=== PATIENT | female | born 1960 | race Caucasian/White ===

== ENCOUNTER → 2016-12-18 | Outpatient (CLI) | payer BC ==
[~2016-12-18] MED LIST: ALBUTEROL SULFATE 0.083% NEB 2.5 MG/3 ML AMPUL NEB ONE
--- NOTE | 2016-12-20 08:26 | PULMONARY FUNCTION TEST ---
DATE OF SERVICE: 12/18/2016 THE VITAL CAPACITY IS NORMAL. THE EXPIRATORY FLOW RATES ARE MODERATELY DECREASED. THE FEV1/VC IS 44%, PREDICTED: 84% LUNG VOLUMES BY NITROGEN WASH OUT METHOD SHOW: TLC IS 116% OF PREDICTED FRC IS 159% OF PREDICTED RV IS 159% OF PREDICTED THE DLCO IS 23.8, 104% OF PREDICTED. THE RV/TLC RATIO IS 49% PREDICTED 36% AFTER BRONCHODILATOR, EXPIRATORY FLOW RATES SHOW SIGNIFICANT IMPROVEMENT. IMPRESSION: THE INSPIRATORY LIMB OF THE F-V LOOP WAS POORLY PERFORMED. THE EXPIRATORY SPIROGRAM SHOWS GOOD PATIENT EFFORT. THERE IS A MODERATE OBSTRUCTIVE DEFECT WITH SIGNIFICANT IMPROVEMENT IN EXPIRATORY FLOW RATES AFTER BRONCHODILATOR. LUNG VOLUMES SHOW HYPERINFLATION. DIFFUSING CAPACITY IS NORMAL. NO PREVIOUS STUDIES AVAILABLE FOR COMPARISON. CC: ZOLTAN OSMAN MD > ROBB
== END ==
LOC: RT 07:19
PROVIDERS: ATTEND Internal Medicine Pulmonary Disease
DX: D86.0 Sarcoidosis of lung (principal)
CPT/HCPCS: 94060; 94727; 94729